=== PATIENT | male | born 1950 | race Caucasian/White ===

== ENCOUNTER 2016-10-02 18:52 | Emergency (ER) | payer MEDICARE ==
[~2016-10-02] VITALS: Wt 86.2 kg
[~2016-10-02 18:52] MED LIST: DOXYCYCLINE MO100 MG PO; FIORICET 325 MG1 TAB PO; HYDROCODONE BIT1 T11 PO; HYDROCODONE BIT1 T20 PO; INSULIN-HUMA100 U/ML SC; KEFLEX500 MG PO; LANTUS100 U/ML SC; MEDROL DOSEPAK4 MG PO; PHENERGAN W/ DE30 ML PO; PREDNICOT10 MG PO; PRILOSEC20 MG PO; PROAIR HFA0.09 MG/AC INH; ROBITUSSIN-AC 160 ML PO; VIBRAMYCIN100 MG PO
== END 2016-10-02 21:24 | disposition home or self-care (01) ==
LOC: ED 18:52
DX: S00.01XA Abrasion of scalp, initial encounter (principal); M54.2 Cervicalgia; Z88.6 Allergy status to analgesic agent; Z79.4 Long term (current) use of insulin; W18.09XA Striking against other object with subsequent fall, initial encounter; Y93.89 Activity, other specified; Y92.9 Unspecified place or not applicable; Y99.9 Unspecified external cause status

== ENCOUNTER → 2021-02-25 | Outpatient (CLI) | payer MEDICARE | END | disposition home or self-care (01) | LOC: RAD 11:06 | PROVIDERS: ATTEND Nurse Practitioner Family | DX: M51.36 Other intervertebral disc degeneration, lumbar region (principal); M85.88 Other specified disorders of bone density and structure, other site; R10.9 Unspecified abdominal pain ==

== ENCOUNTER → 2021-10-28 | Outpatient (CLI) | payer MEDICARE ==
[2021-10-28 09:08] LABS: ALKALINE PHOSPHATASE 38 U/L (45-117); BUN 28 mg/dl (7-24); CHLORIDE 109 mmol/L (98-107); CHOLESTEROL 86 mg/dL (<200); CREATININE 1.23 mg/dL (0.70-1.30); LDL CHOLESTEROL 35 mg/dL (9-159); POTASSIUM 4.8 mmol/L (3.5-5.1); SGOT/AST 5 IU/L (3-35); SGPT/ALT 21 U/L (12-78); SODIUM 139 mmol/L (136-145); TOTAL PROTEIN 7.2 gm/dL (6.4-8.2); TRIGLYCERIDES 74 mg/dl (<150)
[2021-10-28 09:21] LABS: BILIRUBIN Negative (Negative); BLOOD Negative (Negative); CLARITY Clear (Clear); COLOR Yellow (Yellow); GLUCOSE 1+ (Negative); KETONE Trace (Negative); LEUKO ESTERASE Negative (Negative); NITRITE Negative (Negative); PH 6.5 (4.5-8.0); SPECIFIC GRAVITY 1.025 (1.001-1.030)
[2021-10-28 11:17] LABS: BACTERIA 1+; MUCOUS 1+
== END | disposition home or self-care (01) ==
LOC: LAB 08:21
PROVIDERS: ATTEND Internal Medicine
DX: E11.65 Type 2 diabetes mellitus with hyperglycemia (principal); E78.5 Hyperlipidemia, unspecified; E55.9 Vitamin D deficiency, unspecified; E04.9 Nontoxic goiter, unspecified

== ENCOUNTER 2023-09-14 18:28 | Emergency (ER) | payer MEDICARE ==
[~2023-09-14] VITALS: Ht 172.7 cm; Wt 86.2 kg
[2023-09-14] MEDS ORDERED: Tdap Vaccine 0.5 ML SYR (Adult Vaccine) IM ONE (19:00)
[2023-09-14] MEDS ORDERED: CEPHALEXIN500 M1 PO (19:14)
== END 2023-09-14 19:27 | disposition home or self-care (01) ==
LOC: ED 18:28
DX: S61.512A Laceration without foreign body of left wrist, initial encounter (principal); E11.9 Type 2 diabetes mellitus without complications; Z79.4 Long term (current) use of insulin; E78.00 Pure hypercholesterolemia, unspecified; Z88.6 Allergy status to analgesic agent; Z98.890 Other specified postprocedural states; W26.0XXA Contact with knife, initial encounter; Y93.89 Activity, other specified; Y92.89 Other specified places as the place of occurrence of the external cause; Y99.8 Other external cause status

== ENCOUNTER → 2024-12-08 | Outpatient (CLI) | payer MEDICARE ==
[~2024-12-08] MED LIST changes: +CEPHALEXIN500 M1 PO
[2024-12-08 10:43] LABS: BUN 20 mg/dl (9-23); LDL CHOLESTEROL 43 mg/dL (9-159); SGPT/ALT 14 U/L (5-49)
== END ==
LOC: LAB 09:13
PROVIDERS: ATTEND Internal Medicine
DX: E10.65 Type 1 diabetes mellitus with hyperglycemia (principal); E55.9 Vitamin D deficiency, unspecified; E04.9 Nontoxic goiter, unspecified; E78.5 Hyperlipidemia, unspecified